=== PATIENT | female | born 1960 | race Caucasian/White ===

== ENCOUNTER 2020-01-25 21:28 | Inpatient (IN) | payer BC ==
--- NOTE | 2020-01-25 21:44 | PDOC ---
History of Present Illness - General Chief Complaint: Nausea/Vomiting Stated Complaint: VOMITING/NAUSEA Time Seen by Provider: 01/25/20 21:44 History Source: Patient Exam Limitations: No Limitations - History of Present Illness Initial Comments: 01/25/20 22:13 HPI: This is a 59 y/o female with a PMH of HTN and HLD presenting to the ED following an episode of chest pain, nausea/vomiting and diaphoresis. Three hours ago, she was drinking hot chocolate and eating cheese when she began feeling shaky and sweaty. She went over to the air conditioner. She then had four episodes of sharp, left-sided, non-radiating chest pain, not brought on by exertion that lasted a few seconds each. These were followed by sudden onset nausea and one episode of NBNB emesis. She is now complaining of weakness, nausea, and heartburn. PMD: Galen Villa ROS: GENERAL/CONSTITUTIONAL: Yes sweating, chills, weakness. CARDIOVASCULAR: Yes chest pain. No shortness of breath. RESPIRATORY: No cough, wheezing, or hemoptysis. GASTROINTESTINAL: Yes nausea and vomiting. GENITOURINARY: No dysuria, frequency, or change in urination. MUSCULOSKELETAL: No joint or muscle swelling or pain. No neck or back pain. NEUROLOGIC: No headache, vertigo, loss of consciousness, or change in strength/sensation. ENDOCRINE: No increased thirst. No abnormal weight change. HEMATOLOGIC/LYMPHATIC: No anemia, easy bleeding, or history of blood clots. ALLERGIC/IMMUNOLOGIC: No hives or skin allergy. PMH: HLD, HTN PSx: GB Social Hx: Denied tobacco and etoh Meds: See nurses note Allergies: KNDA PE: GENERAL: Awake, alert, and fully oriented, in no acute distress. Laying in bed, conversational. With her daughter. HEAD: No signs of trauma EYES: PERRLA, EOMI NECK: Normal ROM, supple, no lymphadenopathy, JVD, or masses LUNGS: Breath sounds equal, clear to auscultation bilaterally. No wheezes, and no crackles HEART: Regular rate and rhythm, normal S1 and S2, no murmurs, rubs or gallops. Peripheral pulses intact in upper and lower extremities. ABDOMEN: Soft, nontender, normoactive bowel sounds. EXTREMITIES: Normal range of motion, no edema. NEUROLOGICAL: Cranial nerves II through XII grossly intact. Normal speech, normal gait SKIN: Warm, Dry, normal turgor, no rashes or lesions noted. MDM: 01/25/20 22:14 This is a 59 y/o female with a PMH of HTN and HLD presenting to the ED following an episode of chest pain, nausea/vomiting and diaphoresis. - Repeat BP: 166/92 - EKG with T-wave inversions in III, V1, V3. No previous EKG for comparison. - CXR - CBC - CMP - Cardiac panel - PT/INR - Will treat patient with famotidine, zofran, tylenol - ASA 325 - Concerned for acs 01/25/20 23:17 - Trop negative - CXR ok - Admit for tele 01/25/20 23:35 Past History - Medical History Allergies/Adverse Reactions: Allergies Allergy/AdvReac Type Severity Reaction Status Date / Time No Known Allergies Allergy Verified 01/25/20 21:32 COPD: No HTN: Yes Hypercholesterolemia: Yes Other medical history: osteoporosis - Psycho-Social/Smoking History Smoking History: Never smoked - Substance Abuse Hx (Audit-C & DAST Scrn) How often the patient has a drink containing alcohol: Never Score: In Men: 4 or > Positive; In Women: 3 or > Positive: 0 Screen Result (Pos requires Nsg. Audit-10AR): Negative *Physical Exam - Vital Signs Last Vital Signs Temp Pulse Resp BP Pulse Ox 98.1 F 72 18 202/97 H 98 01/25/20 21:29 01/25/20 21:29 01/25/20 21:29 01/25/20 21:29 01/25/20 21:29 Heart Score/ECG Review - History History: Moderately suspicious - Electrocardiogram EKG: Non specific repolarization disturbance - Age Age: 45-65 - Risk Factors Risk Factors Heart Score: Yes Hx Hypercholesterolemia, Yes Hx Hypertension Based on the list above the patient has:: 1-2 risk factors - Troponin Troponin: </= normal limit - Score Heart Score - Total: 4 - ECG Intrepretation Comment:: 01/25/20 22:[address] elevations T-wave inversions in III, ED Treatment Course - LABORATORY CBC & Chemistry Diagram: 01/25/20 22:38 01/25/20 22:38 Discharge - Discharge Information Problems reviewed: Yes Clinical Impression/Diagnosis: Chest pain Qualifiers: Chest pain type: unspecified Qualified Code(s): R07.9 - Chest pain, unspecified Condition: Stable - Admission Yes - Follow up/Referral - Patient Discharge Instructions - Post Discharge Activity
[2020-01-25] MEDS ORDERED: ONDANSETRON 4 MG/2 ML VIAL IVPUSH ONE (22:10)
[2020-01-25] MEDS ORDERED: ACETAMINOPHEN 1000 MG/100 ML VIAL (NON FORMULARY) IVPB ONE (22:10)
[2020-01-25] MEDS ORDERED: FAMOTIDINE 20 MG/50 ML IVPB 20 MG/50 ML MG IVPB ONE ×2 (22:10→22:22)
[2020-01-25] MEDS ORDERED: ASPIRIN 81 MG CHEWABLE TABLETS PO ONE (22:19)
[2020-01-25] MEDS ORDERED: ACETAMINOPHEN INJECTION 100 ML IVPB ONE (22:22)
[2020-01-25 22:44] LABS: HEMOGLOBIN 12.7 GM/dL (10.7-15.3)
[2020-01-25 22:45] LABS: BASO % 0.9 % (0-2.0); EOS % 2.5 % (0-4.5); LYMPH % 39.8 % (8-40); MCH 28.3 pg (25.7-33.7); MCHC 33.4 g/dl (32.0-36.0); MEAN CELL VOLUME 84.5 fl (80-96); MEAN PLT VOLUME 8.9 fl (7.5-11.1); MONO % 8.1 % (3.8-10.2); NEUT % 48.7 % (42.8-82.8); PLATELET COUNT 290 K/MM3 (134-434); RDW 14.3 % (11.6-15.6)
--- NOTE | 2020-01-25 22:50 | PDOC ---
Documentation entered by Francisco Jackson SCRIBE, acting as scribe for Karthikeyan Christine MD. Karthikeyan Christine MD: This documentation has been prepared by the phillipibe, Francisco Jackson SCRIBE, under my direction and personally reviewed by me in its entirety. I confirm that the documentation accurately reflects all work, treatment, procedures, and medical decision making performed by me. Attending Attestation - Resident Resident Name: Latanya Ortiz - ED Attending Attestation I have performed the following: I have examined & evaluated the patient, The case was reviewed & discussed with the resident, I agree w/resident's findings & plan, Exceptions are as noted - HPI HPI: 01/25/20 23:11 The patient is a 59 year old female with a significant past medical history of HTN, HLD, and osteoporosis who presents to the emergency department for evaluation of chest pain, nausea/vomiting and diaphoresis that began three hours ago while drinking hot chocolate and eating cheese. These symptoms were followed by intermittent sharp left-sided chest pain associated with nausea and one episode of NBNB emesis. The patient also endorses weakness, nausea, and heartburn. The patient denies abdominal/back pain, cough, and shortness of breath. Denies fever, chills, or any symptoms. Denies any other symptoms. Allergies: NKDA Social Hx: None reported Surgical Hx: None reported PCP: Galen Villa MD - Physicial Exam PE: 01/25/20 22:06 "GENERAL: Awake, alert, and fully oriented, in no acute distress. HEAD: No signs of trauma EYES: PERRLA, EOMI, sclera anicteric, conjunctiva clear ENT: Auricles normal inspection, hearing grossly normal, nares patent, oropharynx clear without exudates. Moist mucosa NECK: Nontender, no stepoffs, Normal ROM, supple, no lymphadenopathy, JVD, or masses LUNGS: Breath sounds equal, clear to auscultation bilaterally. No wheezes, and no crackles HEART: Regular rate and rhythm, normal S1 and S2, no murmurs, rubs or gallops ABDOMEN: Soft, nontender, normoactive bowel sounds. No guarding, no rebound. No masses EXTREMITIES: Normal range of motion, no edema. No clubbing or cyanosis. No cords, erythema, or tenderness NEUROLOGICAL: Cranial nerves II through XII intact. 5/5 strength and sensation in all extremities, Normal speech, normal gait, normal cerebellar function SKIN: Warm, Dry, normal turgor, no rashes or lesions noted. - Medical Decision Making 01/25/20 23:35 59 F with chest pain, diaphoresis, N+V. Will need to evaluate for ACS. EKG with TWIs. Also consider GI process, but abdomen benign. - Labs, trop - CXR - Admit tele Discharge - Discharge Information Problems reviewed: Yes Clinical Impression/Diagnosis: Nausea & vomiting, Diaphoresis Chest pain Qualifiers: Chest pain type: unspecified Qualified Code(s): R07.9 - Chest pain, unspecified Condition: Stable Disposition: HOME - Follow up/Referral - Patient Discharge Instructions - Post Discharge Activity
[2020-01-25 22:59] LABS: INR 1.04 (0.83-1.09); PROTHROMBIN TIME (PATIENT) 12.3 SEC (9.7-13.0)
[2020-01-25 23:01] LABS: ACTIVATED PTT 29.6 SECONDS (25.2-36.5)
[2020-01-25 23:11] LABS: ALBUMIN 4.1 g/dl (3.4-5.0); ALK PHOS 60 U/L (45-117); ANION GAP 6 MMOL/L (8-16); BILIRUBIN,TOTAL 0.4 mg/dL (0.2-1); CALCIUM 9.3 mg/dL (8.5-10.1); CHLORIDE 103 mmol/L (98-107); CO2 28 mmol/L (21-32); GLUCOSE,RANDOM 98 mg/dL (74-106); POTASSIUM 3.8 mmol/L (3.5-5.1); SGOT/AST 20 U/L (15-37); SGPT/ALT 37 U/L (13-61); SODIUM 138 mmol/L (136-145); TOT PROT 7.6 g/dl (6.4-8.2)
--- NOTE | 2020-01-26 00:32 | PN ---
Teaching Attending Note Name of Resident: Ernesto Rdz ATTENDING PHYSICIAN STATEMENT I saw and evaluated the patient. I reviewed the resident's note and discussed the case with the resident. I agree with the resident's findings and plan as documented. SUBJECTIVE: Patient is a 59 year old woman with a PMH of Osteoporosis, HTN and HLD presentin g to the ER following an episode of chest pain, nausea/vomiting and diaphoresis. Three hours ago, she was drinking hot chocolate and eating cheese when she began feeling shaky and sweaty. She went over to the air conditioner. She then had four episodes of sharp, left-sided, non-radiating chest pain, not brought on by exertion that lasted a few seconds each. These were followed by sudden onset nausea and one episode of NBNB emesis. In the ER she complained of weakness, nausea, and heartburn. Patient denies SOB, headache, palpitations, dizziness, fever, chills, diarrhea, constipation, dysuria, frequency, urgency, melena, hematochezia or hematuria. Denies alcohol, tobacco or illicit drug use. No sick contacts or recent travels. Family history is unremarkable. OBJECTIVE: Alert Vital Signs Period Temp Pulse Resp BP Sys/Randall Pulse Ox Last 24 Hr 98.1 F 68-72 18-18 162-202/97-105 98-100 HEENT: No Jaundice, eye redness or discharge, PERRLA, EOMI. Normocephalic, atraumatic. External ears are normal and hearing is grossly intact. No nasal discharge. Neck: Supple, nontender. No palpable adenopathy or thyromegaly. No JVD Chest: Good effort. Clear to auscultation and percussion. Heart: Regular. No S3, rub or murmur Abdomen: Not distended, soft, nontender and no HSM. No rebound or guarding. Normal bowel sounds. Ext: Peripheral pulses intact. No leg edema. Skin: Warm and dry. No petechiae, rash or ecchymosis. Neuro: Alert. Oriented x3. CN 2-12 grossly intact. Sensation grossly intact in all four extremities and DTR are symmetric. Psych: Appropriate mood and affect. Good insight. Abnormal Lab Results 01/25/20 22:38 Anion Gap 6 L ASSESSMENT AND PLAN: 1. Chest pain/Hypertensive urgency - Chest pain may be related to severe acute hypertension. EKG shows NSR at 72/minute and QTc 453 with T wave inversion in III, V1, V3 with no ischemic ST changes. No old EKG available for comparison. Initial troponin is negative. CXR shows cardiomegaly with increased interstitial markings. Will admit to telemetry, get urinalysis, trend troponin, repeat EKG, treat with NTG PRN, get ECHO, TSH, carotid doppler, fasting lipids and consult Cardiology. ER staff prescribed Tylenol, Pepcid, Zofran and Aspirin 324 mg for the patient. BP improved to 162/105 mmHg in the ER. Will restart HCTZ at 12.5 mg q am and give Metoprolol XL 25 mg stat and then q HS. Subsequently, will revise regimen to ensure [id number] excellent BP control. Patient counseled on the injurious effects of uncontrolled hypertension. Nonpharmacologic measures to co ntrol hypertension like weight loss, salt restriction and exercise stressed. Importance of adherence to treatment regimen and attainment of normotension emphasized. Viral testing for COVID-19 ordered and patient placed on airborne, droplet and contact isolation. 2. DVT prophylaxis - Lovenox 40 mg SQ q 24 hours. 3. Advance directives - Full code
--- NOTE | 2020-01-26 03:59 | HP ---
CHIEF COMPLAINT: Chest/anterior shoulder pain PCP: HISTORY OF PRESENT ILLNESS: This is a 59 year old female with PMH of HTN. She presented to the ER with complaints of chest/left anterior axillary pain that began around 8PM while she was lying in bed. The pain was sudden in onset, intermittent in frequency with 4 episodes, each episode lasting a few seconds, 5-6/10 in intensity, sharp in quality, non-radiating, with no identifiable aggravating or alleviating factors. She states she consumed a heavy meal from [employer] along with hot chocolate before the event. She also took a turmeric pill for the first time, hours before the event. She denies any inciting traumatic event. She endorses diaphoresis, nausea, and one episode of vomiting NBNB, but denies fever, cough,SOB, abdominal pain, diarrhea, dysuria. LMP was 10 years agp, deniesany other menopausal related symptoms. She states she had similar pain 2 days ago, but resolved after a single episode of a few seconds of pain. Approximately 2 weeks ago, she had several recurrent episodes of dizziness, which lasted for 1 week. She went to a [facility] physician at the time, and no treatment was recommended. The dizziness resolved spontaneously. She is on BP medication at home, which she believes is HCTZ, but no other medication. ER course was notable for: (1) TWI in III, V1, V3 (2) Trop negative Recent Travel: denies PAST MEDICAL HISTORY: HTN PAST SURGICAL HISTORY: denies Social History: Smoking: denies Alcohol: denies Drugs: denies Allergies No Known Allergies Allergy (Verified 01/25/20 21:32) HOME MEDICATIONS: REVIEW OF SYSTEMS CONSTITUTIONAL: diaphoresis Absent: fever, chills, diaphoresis, generalized weakness, malaise, loss of appetite, weight change HEENT: Absent: rhinorrhea, nasal congestion, throat pain, throat swelling, difficulty swallowing, mouth swelling, ear pain, eye pain, visual changes CARDIOVASCULAR: chest pain Absent: chest pain, syncope, palpitations, irregular heart rate, lightheadedness, peripheral edema RESPIRATORY: Absent: cough, shortness of breath, dyspnea with exertion, orthopnea, wheezing, stridor, hemoptysis GASTROINTESTINAL: Absent: abdominal pain, abdominal distension, nausea, vomiting, diarrhea, constipation, melena, hematochezia GENITOURINARY: Absent: dysuria, frequency, urgency, hesitancy, hematuria, flank pain, genital pain MUSCULOSKELETAL: Absent: myalgia, arthralgia, joint swelling, back pain, neck pain SKIN: Absent: rash, itching, pallor HEMATOLOGIC/IMMUNOLOGIC: Absent: easy bleeding, easy bruising, lymphadenopathy, frequent infections ENDOCRINE: Absent: unexplained weight gain, unexplained weight loss, heat intolerance, cold intolerance NEUROLOGIC: Absent: headache, focal weakness or paresthesias, dizziness, unsteady gait, seizure, mental status changes, bladder or bowel incontinence PSYCHIATRIC: Absent: anxiety, depression, suicidal or homicidal ideation, hallucinations. PHYSICAL EXAMINATION Vital Signs - 24 hr 01/25/20 01/25/20 01/26/20 21:29 22:45 00:36 Temperature 98.1 F Pulse Rate 72 Pulse Rate [ 68 Right Radial] Respiratory 18 18 Rate Blood Pressure 202/97 H Blood Pressure 162/105 H [Right Arm] O2 Sat by Pulse 98 100 100 Oximetry (%) 01/26/20 01:07 Temperature 98 F Pulse Rate Pulse Rate [ 64 Right Radial] Respiratory 17 Rate Blood Pressure Blood Pressure 164/76 [Right Arm] O2 Sat by Pulse 98 Oximetry (%) GENERAL: Awake, alert, and fully oriented, in no acute distress. EYES: Pupils equal, round and reactive to light, extraocular movements intact, sclera anicteric, conjunctiva clear. No lid lag. EARS, NOSE, THROAT: Ears normal, nares patent, oropharynx clear without exudates. Moist mucous membranes. NECK: Normal range of motion, supple without lymphadenopathy, JVD, or masses. LUNGS: Breath sounds equal, clear to auscultation bilaterally. No wheezes, and no crackles. No accessory muscle use. HEART: RRR, mild tenderness to palpation over pectorodeltoid groove ABDOMEN: Soft, nontender, not distended, normoactive bowel sounds, no guarding, no rebound, no masses. No hepatomegaly or splenomegaly. MUSCULOSKELETAL: No pain on passive abduction, adduction, rotation, flexion, or extension of upper arm UPPER EXTREMITIES: 2+ pulses, warm, well-perfused. No cyanosis. No clubbing. No peripheral edema. LOWER EXTREMITIES: 2+ pulses, warm, well-perfused. No calf tenderness. No peripheral edema. NEUROLOGICAL: Cranial nerves II-XII intact. Normal speech. Normal gait. PSYCHIATRIC: Cooperative. Good eye contact. Appropriate mood and affect. SKIN: Warm, dry, normal turgor, no rashes or lesions noted, normal capillary refill. Laboratory Results - last 24 hr 01/25/20 01/25/20 01/25/20 22:37 22:38 22:38 WBC 6.0 RBC 4.50 Hgb 12.7 Hct 38.0 MCV 84.5 MCH 28.3 MCHC 33.4 RDW 14.3 Plt Count 290 MPV 8.9 Absolute Neuts (auto) 2.9 Neutrophils % 48.7 Lymphocytes % 39.8 Monocytes % 8.1 Eosinophils % 2.5 Basophils % 0.9 Nucleated RBC % 0 PT with INR 12.30 INR 1.04 PTT (Actin FS) 29.6 Sodium Potassium Chloride Carbon Dioxide Anion Gap BUN Creatinine Est GFR (CKD-EPI)AfAm Est GFR (CKD-EPI)NonAf POC Glucometer 101 Random Glucose Calcium Total Bilirubin AST ALT Alkaline Phosphatase Creatine Kinase Troponin I Total Protein Albumin 01/25/20 22:38 WBC RBC Hgb Hct MCV MCH MCHC RDW Plt Count MPV Absolute Neuts (auto) Neutrophils % Lymphocytes % Monocytes % Eosinophils % Basophils % Nucleated RBC % PT with INR INR PTT (Actin FS) Sodium 138 Potassium 3.8 Chloride 103 Carbon Dioxide 28 Anion Gap 6 L BUN 16.0 Creatinine 1.0 Est GFR (CKD-EPI)AfAm 72.42 Est GFR (CKD-EPI)NonAf 62.49 POC Glucometer Random Glucose 98 Calcium 9.3 Total Bilirubin 0.4 AST 20 ALT 37 Alkaline Phosphatase 60 Creatine Kinase 77 Troponin I < 0.02 Total Protein 7.6 Albumin 4.1 ASSESSMENT/PLAN: 59 year old female with PMH of HTN. She presented to the ER with complaints of chest/left anterior axillary pain that began around 8PM while she was lying in bed associated with diaphoresis, nausea, vomiting, foudn to have TWI on EKG, admitted for ACS r/o. #Chest pain - Atypical, reproducible, negative trops, however TWI on EKG with no previous comparison, must r/o ACS - May be MSK (reproducible), although no history of trauma and pain unrelated to movement - Trops negative x1, will trend - EKG with TWI in III, V1, V3 - Cardio consulted, Echo as per Cardio - Tylenol for pain, Zofran for nausea #Asymptomatic Bacteruria - LE +1 with 430 bacteria and no symptoms - Will order Urine cx for now and treat if symptoms develop or if culture results necessitate abx #Hx of HTN - Started on HCTZ 12.5 (home dose must be verified from pharmacy) - Started on Metoprolol 25mg due to elevated BP in ER (202/97 -> 164/76) #FEN - Na controlled diet #Prophylaxis - Lovenox #Dispo - Monitor in Tele, r/o ACS ATTENDING PHYSICIAN STATEMENT I saw and evaluated the patient. I reviewed the resident's note and discussed the case with the resident. I agree with the resident's findings and plan as documented. SUBJECTIVE: OBJECTIVE: ASSESSMENT AND PLAN:
[2020-01-26 04:51] LABS: EPI CELLS 9 /uL (0-25.1); HYALINE CASTS 1 /uL (0-3.1); URINE APPEARANCE CLEAR; URINE BACTERIA 430 /uL (0-1359); URINE BILIRUBIN NEGATIVE (NEGATIVE); URINE COLOR YELLOW; URINE GLUCOSE (UA) NEGATIVE (NEGATIVE); URINE KETONE NEGATIVE (NEGATIVE); URINE LEUK ESTERASE 1+ (NEGATIVE); URINE NITRITE NEGATIVE (NEGATIVE); URINE PROTEIN NEGATIVE (NEGATIVE); URINE RBC 4 /uL (0-23.9); URINE UROBILINOGEN 0.2 mg/dL (0.2-1.0); URINE WBC 21 /uL (0-25.8)
[2020-01-26 06:37] LABS: BASO % 0.9 % (0-2.0); EOS % 0.8 % (0-4.5); HEMATOCRIT 37.6 % (32.4-45.2); HEMOGLOBIN 12.4 GM/dL (10.7-15.3); MCH 27.5 pg (25.7-33.7); MCHC 33.1 g/dl (32.0-36.0); MEAN CELL VOLUME 83.2 fl (80-96); MEAN PLT VOLUME 9.3 fl (7.5-11.1); MONO % 5.4 % (3.8-10.2); NEUT % 60.9 % (42.8-82.8); PLATELET COUNT 271 K/MM3 (134-434); RBC 4.52 M/mm3 (3.60-5.2); RDW 14.2 % (11.6-15.6); WHITE BLOOD COUNT 6.1 K/mm3 (4.0-10.0)
[2020-01-26 07:07] LABS: ALBUMIN 3.7 g/dl (3.4-5.0); ALK PHOS 53 U/L (45-117); ANION GAP 9 MMOL/L (8-16); BILIRUBIN,TOTAL 0.4 mg/dL (0.2-1); BLOOD UREA NITROGEN 15.4 mg/dL (7-18); CHLORIDE 104 mmol/L (98-107); CO2 26 mmol/L (21-32); CREATININE 0.9 mg/dL (0.55-1.3); GLUCOSE,RANDOM 93 mg/dL (74-106); MAGNESIUM 2.4 mg/dL (1.8-2.4); PHOSPHOROUS 3.8 mg/dL (2.5-4.9); POTASSIUM 3.9 mmol/L (3.5-5.1); SGOT/AST 19 U/L (15-37); SGPT/ALT 35 U/L (13-61); SODIUM 140 mmol/L (136-145)
--- NOTE | 2020-01-26 08:19 | CON.CARD ---
Consult Consult Specialty:: cardio - History of Present Illness Chief Complaint: cp History of Present Illness: 59 yo F here with CP. reports L sided CP beginning at rest (in bed) approx 8PM. sudden in onset, localized (2 fingerbreadths), intermittent for few episodes-- each episode lasting a few seconds, non-radiating, sharp quality. admits to eating a heavy meal from [employer] along with hot chocolate before the event. She also took a turmeric pill for the first time, hours before the event. + assctd diaphoresis, nausea, and one episode of vomiting never had this before. no cp or signif new sob with activity. says bp usually well controlled at PMD denies DM, HPL never cigs no FH of CAD no CP today PMH: HTN - Smoking History Smoking history: Never smoked Home Medications - Allergies Allergies/Adverse Reactions: Allergies Allergy/AdvReac Type Severity Reaction Status Date / Time No Known Allergies Allergy Verified 01/25/20 21:32 - Home Medications Home Medications: Ambulatory Orders Alendronate Sodium [Fosamax] 1 tab WEEKLY 01/26/20 Atorvastatin Ca [Lipitor] 20 mg PO HS 01/26/20 Protonix 20 mg PO DAILY 01/26/20 Triamterene/Hydrochlorothiazid [Triamterene-Hctz 37.5-25 mg Cp] 1 capl PO DAILY 01/26/20 Review of Systems - Review of Systems Constitutional: denies: Chills, Fever Eyes: denies: Eye Pain HENT: denies: Nasal Congestion Neck: denies: Stiffness Cardiovascular: denies: Palpitations Respiratory: denies: Orthopnea, PND Gastrointestinal: denies: Diarrhea, Rectal Bleeding Genitourinary: denies: Burning, Hematuria Musculoskeletal: denies: Muscle Pain Integumentary: denies: Rash Neurological: denies: Numbness, Seizure, Syncope Endocrine: denies: Excessive Sweating Hematology/Lymphatic: denies: Excessive Bleeding Vital Signs: Vital Signs Temperature 97.7 F 01/26/20 06:05 Pulse Rate 58 L 01/26/20 06:05 Respiratory Rate 16 01/26/20 07:42 Blood Pressure 168/85 01/26/20 06:05 O2 Sat by Pulse Oximetry (%) 99 01/26/20 07:42 Constitutional: Yes: Well Nourished, No Distress Eyes: No: Sclera Icterus HENT: No: Nasal Congestion Neck: No: Decreased ROM Respiratory: Yes: CTA Bilaterally. No: Accessory Muscle Use, Rhonchi, Wheezes Gastrointestinal: Yes: Normal Bowel Sounds. No: Distention, Hepatomegaly, Palpable Mass, Tenderness Cardiovascular: Yes: Regular Rate and Rhythm JVD: No Carotid Bruit: No PMI: Non-Displaced Heart Sounds: Yes: S1, S2. No: Gallop Murmur: No: Systolic Murmur, Diastolic Murmur Musculoskeletal: Yes: Other (No kyphosis) Extremities: No: Cool, Cyanosis Edema: No Peripheral Pulses: 2+ Left Carotid, 2+ Right Carotid, 2+ Left Doralis Pedis, 2+ Right Dorsalis Pedis Integumentary: No: Jaundice Neurological: Yes: Alert, Oriented (x3) Psychiatric: No: Agitated - Other Data Labs, Other Data: CBC, BMP 01/26/20 05:30 01/26/20 05:30 INR, PTT INR 1.04 (0.83-1.09) 01/25/20 22:38 Troponin, BNP 01/25/20 01/26/20 01/26/20 22:38 03:15 05:30 Troponin I < 0.02 < 0.02 < 0.02 Troponin, BNP 01/25/20 01/26/20 01/26/20 22:38 03:15 05:30 Troponin I < 0.02 < 0.02 < 0.02 Assessment/Plan ECG #1: NSR, normal axis, nonsp TWAs, no q's (no old) #2: no change CXR: clear chest pain: -suspect GI etiology given precipitants (large meal from [employer], hot chocolate, laying in bed) and assct sx's (nausea) -trop neg x 3 -ECG nonspecific TWAs, no change on serial studies (no old) -rec observe for 24 hrs--if no ischemic sx's, then reasonable for early discharge if hospitalist team can arrange outpatient treadmill ECG stress test at hospital for tuesday or tuesday of next week. d/w'd hospitalist, agrees with plan HTN urgency: -initial BP 200-->improved promptly -continue home med regimen, observe trend
[2020-01-26] MEDS ORDERED: ASPIRIN 81 MG CHEWABLE TABLETS ONE (09:29)
[2020-01-26] MEDS ORDERED: HYDROCHLOROTHIAZIDE 25 MG TABLET (FP) ONE (09:29)
[2020-01-26] MEDS ORDERED: metoPROLOL SUCCINATE 25 MG TAB.SR.24H (FP) ONE (09:29)
[2020-01-26] MEDS ORDERED: ENOXAPARIN NA (PORCINE) 40 MG/0.4 ML DISP.SYRIN SQ ONE (09:29)
[2020-01-26] MEDS: ENOXAPARIN NA (PORCINE) 40 MG/0.4 ML DISP.SYRIN SQ SCH (10:20)
[2020-01-26] MEDS: ASPIRIN 81 MG CHEWABLE TABLETS PO SCH (10:20)
[2020-01-26] MEDS: HYDROCHLOROTHIAZIDE 12.5 MG CAPSULE (FP) PO SCH (10:20)
[2020-01-26] MEDS: metoPROLOL SUCCINATE 25 MG TAB.SR.24H (FP) PO SCH (10:21)
--- NOTE | 2020-01-26 11:17 | DS ---
Physical Examination Vital Signs: Vital Signs Temperature 97.8 F 01/26/20 09:36 Pulse Rate 55 L 01/26/20 09:36 Respiratory Rate 18 01/26/20 09:36 Blood Pressure 160/79 01/26/20 09:36 O2 Sat by Pulse Oximetry (%) 98 01/26/20 09:36 Constitutional: Yes: Well Nourished, No Distress Eyes: Yes: WNL, Conjunctiva Clear HENT: Yes: WNL, Atraumatic, Normocephalic Neck: Yes: WNL, Supple, Trachea Midline Cardiovascular: Yes: WNL, Regular Rate and Rhythm Respiratory: Yes: WNL, Regular, CTA Bilaterally Gastrointestinal: Yes: WNL, Normal Bowel Sounds, Soft Labs: CBC, BMP 01/26/20 05:30 01/26/20 05:30 Discharge Summary Problems reviewed: Yes Reason For Visit: CHEST PAIN, HYPERTENSION Current Active Problems Chest pain (Acute) Hospital Course: 59 year old female with a history of HTN, and GERD who presents with atypical chest pain: status post cardiology evaluation -Suspect GI etiology given precipitants (large meal from [employer], hot chocolate, laying in bed) and associated symptoms (nausea) -troponin negative x 3 -ECG nonspecific TWAs, no change on serial studies (no old) -consider early discharge if she remains asymptomatic, if can arrange outpatient nuclear stress test at hospital for Tuesday or Tuesday of next week HTN urgency: -Initial BP 200-->improved promptly -Continue home med regimen Condition: Good - Instructions Diet, Activity, Other Instructions: Diet as tolerates Ok to return to work Referrals: Galen Villa MD [Primary Care Provider] - Disposition: HOME - Home Medications Comprehensive Discharge Medication List: Ambulatory Orders Alendronate Sodium [Fosamax] 1 tab WEEKLY 01/26/20 Atorvastatin Ca [Lipitor] 20 mg PO HS 01/26/20 Protonix 20 mg PO DAILY 01/26/20 Triamterene/Hydrochlorothiazid [Triamterene-Hctz 37.5-25 mg Cp] 1 capl PO DAILY 01/26/20 This patient is new to me today: Yes Date on this admission: 01/26/20 Emergency Visit: No Critical Care patient: No - Discharge Referral Referred to [facility] Med [facility] No
[2020-01-26 15:50] VITALS: BMI 28.2
[2020-01-27] MEDS: HYDROCHLOROTHIAZIDE 12.5 MG CAPSULE (FP) PO SCH (09:02)
[2020-01-27] MEDS: metoPROLOL SUCCINATE 25 MG TAB.SR.24H (FP) PO SCH (09:02)
[2020-01-27] MEDS: ENOXAPARIN NA (PORCINE) 40 MG/0.4 ML DISP.SYRIN SQ SCH (09:02)
[2020-01-27] MEDS: ASPIRIN 81 MG CHEWABLE TABLETS PO SCH (09:02)
[2020-01-27] MEDS ORDERED: PT OWN MED DRAWER 7, Y5N ONE (10:41)
--- NOTE | 2020-01-27 11:46 | PN ---
Physical Exam: SUBJECTIVE: Patient seen and examined 01/27/20: Pt feels better, had a bit of pain last night but resolved. No n/v/f/c; no cough. ambulating without issues OBJECTIVE: Vital Signs Period Temp Pulse Resp BP Sys/Randall Pulse Ox Last 24 Hr 97.5 F-98.6 F 54-84 14-20 112-148/50-86 97-98 GENERAL: The patient is awake, alert, and fully oriented, in no acute distress. HEAD: Normal with no signs of trauma. EYES: NC/AT extraocular movements intact, sclera anicteric, conjunctiva clear. No ptosis. ENT: Ears normal, nares patent, oropharynx clear without exudates, moist mucous membranes. NECK: Trachea midline, full range of motion, supple. LUNGS: Breath sounds equal, clear to auscultation bilaterally, no wheezes, no crackles, no accessory muscle use. POS LEFT REPRODUCIBLE PAIN HEART: Regular rate and rhythm, S1, S2 without murmur, rub or gallop. ABDOMEN: Soft, nontender, nondistended, normoactive bowel sounds, no guarding, no rebound, no hepatosplenomegaly, no masses. EXTREMITIES: 2+ pulses, warm, well-perfused, no edema. NEUROLOGICAL: Cranial nerves II through XII grossly intact. Normal speech, gait not observed. PSYCH: Normal mood, normal affect. SKIN: Warm, dry, normal turgor, no rashes or lesions noted Laboratory Results - last 24 hr 01/26/20 00:14 COVID-19 ([place]) Not detected Active Medications Generic Name Dose Route Start Last Admin Trade Name Cristhianq PRN Reason Stop Dose Admin Aspirin 81 mg 01/26/20 10:00 01/27/20 09:02 Asa - PO 81 mg DAILY TR[facility] Administration Enoxaparin Sodium 40 mg 01/26/20 10:01/27/20 09:02 Lovenox - SQ 40 mg DAILY TRACY Administration Hydrochlorothiazide 12.5 mg 01/26/20 10:00 01/27/20 09:02 Hctz - PO 12.5 mg DAILY TRACY Administration Metoprolol Succinate 25 mg 01/26/20 10:00 01/27/20 09:02 Toprol Xl - PO 25 mg DAILY TRACY Administration LABS CBC, ELECTROLYTES STABLE CARDIAC ENZYMES NEG X 2 TSH ELEVATED - 3.94 ASSESSMENT/PLAN: 59 year old female with a history of HTN, and GERD who presents with atypical chest pain: status post cardiology evaluation - Reproducible pain on exam today, likely musculoskeletal, possibly GI etiology -troponin negative x 2 -Cardiology following - nsaids for pain on baby aspirin HTN urgency: -Initial BP 200-->improved promptly -Continue home med regimen - normal bp and stable today no changes to meds *elevated tsh level - asymptomatic recheck with full thyroid panel as outpt in 4-6 weeks *dvt prophy - on lovenox Problem List - Problems (1) Chest pain Code(s): R07.9 - CHEST PAIN, UNSPECIFIED Qualifiers: Chest pain type: unspecified Qualified Code(s): R07.9 - Chest pain, unspecified Visit type - Emergency Visit Emergency Visit: Yes ED Registration Date: 01/25/20 Care time: The patient presented to the Emergency Department on the above date and was hospitalized for further evaluation of their emergent condition. - New Patient This patient is new to me today: Yes Date on this admission: 01/27/20 - Critical Care Critical Care patient: No - Discharge Referral Referred to [facility] Med P.C.: No
[2020-01-27 15:05] VITALS: BP 126/90; PULSE 61; TEMP 97.6
--- NOTE | 2020-01-27 15:13 | PN ---
Progress Note, Physician Chief Complaint: cp History of Present Illness: no more cp. no sob, palp, syncope - Current Medication List Current Medications: Active Medications Aspirin (Asa -) 81 mg PO DAILY [facility] Last Admin: 01/27/20 09:02 Dose: 81 mg Documented by: Enoxaparin Sodium (Lovenox -) 40 mg SQ DAILY [facility] Last Admin: 01/27/20 09:02 Dose: 40 mg Documented by: Hydrochlorothiazide (Hctz -) 12.5 mg PO DAILY [facility] Last Admin: 01/27/20 09:02 Dose: 12.5 mg Documented by: Metoprolol Succinate (Toprol Xl -) 25 mg PO DAILY [facility] Last Admin: 01/27/20 09:02 Dose: 25 mg Documented by: - Objective Vital Signs: Vital Signs Temperature 97.6 F 01/27/20 14:50 Pulse Rate 61 01/27/20 14:50 Respiratory Rate 18 01/27/20 14:50 Blood Pressure 126/90 01/27/20 14:50 O2 Sat by Pulse Oximetry (%) 98 01/27/20 14:50 Constitutional: Yes: Well Nourished, No Distress Cardiovascular: Yes: Regular Rate and Rhythm, S1, S2. No: Gallop, Murmur Respiratory: Yes: Regular, CTA Bilaterally. No: Accessory Muscle Use Extremities: No: Cold Edema: No Neurological: Yes: Alert, Oriented Psychiatric: No: Agitated Labs: CBC, BMP 01/26/20 05:30 01/26/20 05:30 INR, PTT INR 1.04 (0.83-1.09) 01/25/20 22:38 Assessment/Plan ECG #1: NSR, normal axis, nonsp TWAs, no q's (no old) #2: no change CXR: clear tele: NSR chest pain: -suspect GI etiology given precipitants (large meal from [employer], hot chocolate, laying in bed) and assct sx's (nausea) -trop neg x 3 -ECG nonspecific TWAs, no change on serial studies (no old) -BP has been well controlled since the initial presentation to ER, no more cp, no other ischemic sx's -ok for d/c, will arrange outpatient ETT this week (my office will call her tomorrow) HTN urgency: -initial BP 200-->improved promptly -continue home med regimen
--- NOTE | 2020-01-27 18:26 | EKG ---
Test Reason : Blood Pressure : / mmHG Vent. Rate : 065 BPM Atrial Rate : 065 BPM P-R Int : 146 ms QRS Dur : 080 ms QT Int : 432 ms P-R-T Axes : 028 033 015 degrees QTc Int : 449 ms NORMAL SINUS RHYTHM INCOMPLETE RBBB BORDERLINE ECG Confirmed by MD SHAHZAD, JAY ([id number] on 01/27/2020 6:26:29 PM Referred By: Confirmed By:JAY PIKE MD
--- NOTE | 2020-01-27 18:30 | EKG ---
Test Reason : Blood Pressure : / mmHG Vent. Rate : 072 BPM Atrial Rate : 072 BPM P-R Int : 150 ms QRS Dur : 082 ms QT Int : 414 ms P-R-T Axes : 055 022 012 degrees QTc Int : 453 ms NORMAL SINUS RHYTHM LEFT ATRIAL ENLARGEMENT INCOMPLETE RBBB NONSPECIFIC ST ABNORMALITY ABNORMAL ECG Confirmed by MD SHAHZAD, JAY ([id number] on 01/27/2020 6:30:13 PM Referred By: Confirmed By:JAY PIKE MD
== END 2020-01-27 17:03 | disposition home or self-care (01) | DRG 305 ==
LOC: JER 21:28 → JERBED 23:21 → J4S 01-26 11:00
PROVIDERS: ADMIT Internal Medicine; ATTEND Internal Medicine
DX: I16.0 Hypertensive urgency (principal); I10 Essential (primary) hypertension; E78.5 Hyperlipidemia, unspecified; R07.89 Other chest pain; M81.0 Age-related osteoporosis without current pathological fracture; K21.9 Gastro-esophageal reflux disease without esophagitis
CPT/HCPCS: 36415; 71045-TC-FY; 80053; 81003; 82550; 82962; 83036; 83735; 84100; 84443; 84484; 85025; 85610; 85730; 87086; 93005; 93010; 99282-25; J0131; U0003

== ENCOUNTER 2022-08-22 14:38 | Emergency (ER) | payer BC ==
[2022-08-22 14:42] VITALS: RESP 18; TEMP 98; BMI 27.2
[2022-08-22 16:28] VITALS: BP 160/75; PULSE 57
[2022-08-22 16:36] LABS: BASO % 0.9 % (0-2.0); EOS % 2.1 % (0-4.5); HEMATOCRIT 38.7 % (32.4-45.2); LYMPH % 29.1 % (8-40); MCH 27.6 pg (25.7-33.7); MCHC 33.5 g/dl (32.0-36.0); MEAN CELL VOLUME 82.3 fl (80-96); MEAN PLT VOLUME 8.3 fl (7.5-11.1); NEUT % 59.9 % (42.8-82.8); PLATELET COUNT 281 10^3/uL (134-434); RDW 14.2 % (11.6-15.6); WHITE BLOOD COUNT 4.8 K/mm3 (4.0-10.0)
[2022-08-22 16:58] LABS: CALCIUM 9.5 mg/dL (8.5-10.1)
[2022-08-22 16:59] LABS: ALBUMIN 3.8 g/dl (3.4-5.0); BLOOD UREA NITROGEN 18.6 mg/dL (7-18)
[2022-08-22 17:02] LABS: CREATININE 0.8 mg/dL (0.55-1.3)
[2022-08-22 17:03] LABS: BILIRUBIN,TOTAL 0.4 mg/dL (0.2-1); TOT PROT 7.1 g/dl (6.4-8.2)
== END 2022-08-22 18:10 | disposition home or self-care (01) ==
LOC: JER 14:38
DX: R07.89 Other chest pain (principal)
CPT/HCPCS: 36415; 71045-TC-FY; 80053; 84484; 85025; 93005; 93010; 99285-25